=== PATIENT | female | born 1985 | race Caucasian/White ===

== ENCOUNTER 2017-10-21 07:46 | Inpatient (IN) | payer OTHER ==
[~2017-10-21] VITALS: Ht 165.1 cm; Wt 95.0 kg
[2017-10-21] VITALS (9 sets, daily range): BP systolic 96–134; BP diastolic 54–97
[~2017-10-21 07:46] MED LIST: Motrin PO; PRENATA CHEWAB1 EACH PO; Percocet 5/325,Endoc PO; Prefera-OB Plus DHA PO; TUMS500 MG PO
[2017-10-21 08:40] LABS: BASOPHIL (%) 0.3 % (0-1); EOSINOPHIL (%) 0.3 % (0-5); HEMATOCRIT 30.2 % (36.0-46.0); HEMOGLOBIN 10.1 G/DL (11.9-15.5); IMMATURE GRANULOCYTE (%) 0.4 % (0.0-0.7); LYMPHOCYTE COUNT 2.1 K/uL (1.0-2.8); MCH 29.4 PG (29.0-34.0); MCHC 33.4 G/DL (30.0-36.0); MCV 87.8 FL (83-99); MONOCYTE (%) 5.9 % (3-12); MONOCYTE COUNT 0.5 K/uL (0-0.8); NEUTROPHIL (%) 66.1 % (45-76); NEUTROPHIL COUNT 5.1 K/uL (1.8-6.4); PLATELET COUNT 239 K/uL (156-360); RBC DIS.WIDTH-CV 13.2 % (11.8-14.6); RBC DIS.WIDTH-SD 41.6 % (39-53); RED BLOOD COUNT 3.44 M/uL (3.80-5.20); WHITE BLOOD COUNT 7.7 K/uL (4.1-10.2)
[2017-10-21] MEDS ORDERED: ENDOCET 5-3251 EACH PO (13:04)
[2017-10-21] MEDS ORDERED: IBUPROFEN800 MG PO (13:04)
[2017-10-22 01:15] VITALS: BP 116/66
[2017-10-22 04:00] VITALS: BP 108/60
[2017-10-22 06:58] LABS: BASOPHIL (%) 0.2 % (0-1); EOSINOPHIL (%) 0.1 % (0-5); HEMATOCRIT 21.1 % (36.0-46.0); IMMATURE GRANULOCYTE (%) 0.5 % (0.0-0.7); LYMPHOCYTE (%) 21.8 % (15-42); LYMPHOCYTE COUNT 2.3 K/uL (1.0-2.8); MCH 29.7 PG (29.0-34.0); MCHC 33.2 G/DL (30.0-36.0); MCV 89.4 FL (83-99); MONOCYTE (%) 5.6 % (3-12); MONOCYTE COUNT 0.6 K/uL (0-0.8); NEUTROPHIL (%) 71.8 % (45-76); NEUTROPHIL COUNT 7.4 K/uL (1.8-6.4); PLATELET COUNT 211 K/uL (156-360); RBC DIS.WIDTH-CV 13.2 % (11.8-14.6); WHITE BLOOD COUNT 10.4 K/uL (4.1-10.2)
[2017-10-22 06:59] LABS: RED BLOOD COUNT 2.36 M/uL (3.80-5.20)
[2017-10-22 07:15] VITALS: BP 124/78
[2017-10-22 10:45] VITALS: BP 115/71
[2017-10-23 07:35] VITALS: BP 132/81
== END 2017-10-23 13:00 | disposition home or self-care (01) | DRG 766 ==
LOC: 2WEST 07:46 → 2SOUTH 10:45 → 2WEST 10-23 13:00
PROVIDERS: Obstetrics & Gynecology Gynecology
PROC: 0UB70ZZ Excision of Bilateral Fallopian Tubes, Open Approach (ICD-10-PCS; principal; 2017-10-21)
PROC: 0UT00ZZ Resection of Right Ovary, Open Approach (ICD-10-PCS; principal; 2017-10-21)
PROC: 10D00Z1 Extraction of Products of Conception, Low, Open Approach (ICD-10-PCS; principal; 2017-10-21)
DX: O34.211 Maternal care for low transverse scar from previous cesarean delivery (principal); Z30.2 Encounter for sterilization; O34.83 Maternal care for other abnormalities of pelvic organs, third trimester; D27.0 Benign neoplasm of right ovary; Z3A.39 39 weeks gestation of pregnancy; Z37.0 Single live birth; O99.02 Anemia complicating childbirth; D64.9 Anemia, unspecified; O99.214 Obesity complicating childbirth; E66.9 Obesity, unspecified; Z68.37 Body mass index [BMI] 37.0-37.9, adult; Z87.891 Personal history of nicotine dependence
CPT/HCPCS: 85025; 86850; 86900; 86901; 88302; 88307; J0690; J1940; J2270; J2274; J2405; J2765; J7120